=== PATIENT | female | born 1960 | race Caucasian/White ===

== ENCOUNTER → 2024-02-18 | Outpatient (CLI) | payer MEDICARE | LOC: M WHC 07:52 | PROVIDERS: ATTEND Family Medicine | DX: Z13.820 Encounter for screening for osteoporosis (principal); M85.852 Other specified disorders of bone density and structure, left thigh ==

== ENCOUNTER → 2024-03-27 | Outpatient (CLI) | payer MEDICARE | LOC: M RAD 11:37 | PROVIDERS: ATTEND Student in an Organized Health Care Education/Training Program | DX: M25.512 Pain in left shoulder (principal) ==

== ENCOUNTER → 2024-07-07 | Outpatient (CLI) | payer MEDICARE ==
[~2024-07-07] MED LIST: PROHANCE 279.3MG/ML 15ML VIAL ONE
== END ==
LOC: M PLAIMG 11:34
PROVIDERS: ATTEND Internal Medicine
DX: M51.26 Other intervertebral disc displacement, lumbar region (principal); M51.27 Other intervertebral disc displacement, lumbosacral region
CPT/HCPCS: 72158; A9576

== ENCOUNTER → 2024-08-22 | Outpatient (CLI) | payer MEDICARE | LOC: M RAD 10:38 | PROVIDERS: ATTEND Internal Medicine | DX: Z12.2 Encounter for screening for malignant neoplasm of respiratory organs (principal); Z87.891 Personal history of nicotine dependence ==

== ENCOUNTER → 2024-08-26 | Outpatient (CLI) | payer MEDICARE | LOC: M SOG 07:51 | PROVIDERS: ATTEND Physician Assistant | DX: M25.552 Pain in left hip (principal) ==

== ENCOUNTER 2024-09-29 09:35 | Inpatient (IN) | payer MEDICARE ==
[~2024-09-29] VITALS: Ht 170.2 cm; Wt 73.3 kg
[2024-09-29] MEDS: IRBESARTAN 150MG TAB PO SCH (09:00)
[2024-09-29 10:52] LABS: BASO % 0.1 % (0.0-1.0); EOS % 0.2 % (0.0-3.0); HEMOGLOBIN 12.5 g/dl (12.0-15.5); LYMPH # 1.4 10^3/uL (1.5-5.0); LYMPH % 14.7 % (24.0-44.0); MEAN CORPUSCULAR HEMOGLOBIN 29.3 pg (27.0-33.0); MEAN CORPUSCULAR HGB CONC 32.1 g/dl (32.0-36.5); MEAN CORPUSCULAR VOLUME 91.5 fl (80.0-96.0); MONO # 0.7 10^3/uL (0.0-0.8); MONO % 7.2 % (2.0-8.0); NEUTROPHILS # 7.5 10^3/uL (1.5-8.5); NEUTROPHILS % 77.4 % (36.0-66.0); PLATELET COUNT, AUTOMATED 331 10^3/uL (150-450); RED BLOOD COUNT 4.26 10^6/uL (4.00-5.40); WHITE BLOOD COUNT 9.7 10^3/uL (4.0-10.0)
[2024-09-29 11:01] LABS: ERYTHROCYTE SEDIMENTATION RATE 40 mm/hr (0-30)
[2024-09-29] MEDS: MORPHINE 4 MG/ML 1ML VIAL IV PRN (11:12)
[2024-09-29] MEDS: ONDANSETRON 4MG 2ML VIAL IV ONE (11:12)
[2024-09-29 11:24] LABS: BLOOD UREA NITROGEN 15 MG/DL (9-23); C REACTIVE PROTEIN QUANTITATIV 0.81 MG/DL (<1.0); CALCIUM LEVEL 8.9 MG/DL (8.3-10.6); CARBON DIOXIDE LEVEL 30 MMOL/L (20-31); CHLORIDE LEVEL 107 MMOL/L (98-107); CREATININE FOR GFR 0.61 MG/DL (0.55-1.30); GLOMERULAR FILTRATION RATE > 90.0 (>45); GLUCOSE, FASTING 79 MG/DL (74-106); POTASSIUM SERUM 4.7 MMOL/L (3.5-5.1); SODIUM LEVEL 143 MMOL/L (136-145)
[2024-09-29] MEDS ORDERED: PROHANCE 279.3MG/ML 15ML VIAL As Ordered ONE (11:35)
[2024-09-29 16:08] LABS: KETONE, URINE AUTO RFX TRACE mg/dL (NEGATIVE); LEUKOCYTE ESTERASE UR AUTO RFX NEGATIVE (NEGATIVE); MUCUS, URINE RFX SMALL (NEGATIVE); NITRITE, URINE AUTO RFX NEGATIVE (NEGATIVE); RBC, URINE AUTO RFX 2 /HPF (0-3); SQUAM EPITHELIAL CELL UR AURFX 0 /HPF (0-6); WBC, URINE AUTO RFX 1 /HPF (0-3)
[2024-09-29 16:13] LABS: INR 0.99; PARTIAL THROMBOPLASTIN TIME 28.7 SECONDS (24.8-34.2); PROTHROMBIN TIME 13.4 SECONDS (12.5-14.5)
[2024-09-29] MEDS: ACETAMINOPHEN 500 MG TAB PO PRN (16:38)
[2024-09-29] MEDS ORDERED: D 50CAP2 PO (16:41)
[2024-09-29] MEDS ORDERED: ROSU20TA86 PO (16:41)
[2024-09-29] MEDS ORDERED: MELA5TAB58 PO (16:41)
[2024-09-29] MEDS ORDERED: ALEN70TA82 PO (16:41)
[2024-09-29] MEDS ORDERED: TRAZ-252 PO (16:41)
[2024-09-29] MEDS ORDERED: IRBE300T25 PO (16:41)
[2024-09-29] MEDS ORDERED: TRAM50TA2 PO (16:41)
[2024-09-29] MEDS ORDERED: LIDO1PAD TOP (16:42)
[2024-09-29] MEDS ORDERED: HOME MED LIST COMPLETE! XX SCH (16:45)
[2024-09-29 16:59] LABS: THYROID STIMULATING HORMONE 1.131 uIU/ML (0.55-4.78)
[2024-09-29 17:34] VITALS: BP 127/60; TEMP 97.7; O2SAT 93
[2024-09-29] MEDS ORDERED: ONDANSETRON 4MG 2ML VIAL IV PRN (19:45)
[2024-09-29] MEDS ORDERED: fentaNYL 100 MCG/2 ML INJECTION IV PRN (19:45)
[2024-09-29] MEDS ORDERED: oxyCODONE 5MG TAB PO PRN (19:45)
[2024-09-29] MEDS ORDERED: HYDROMORPHONE HCL 0.5 MG/ 0.5 ML SYRINGE IV PRN (19:45)
[2024-09-29] MEDS: LR 1,000 ML IV SCH (19:45)
[2024-09-29 19:56] VITALS: BP 129/58; TEMP 99; O2SAT 91
[2024-09-29] MEDS: traZODone 50 MG TAB PO SCH (21:26)
[2024-09-29 23:31] VITALS: BP 114/56; TEMP 97.2; O2SAT 95
[2024-09-29] MEDS: NS (Normal Saline) 0.9% 1,000 ML IV SCH (23:49)
[2024-09-30 03:50] VITALS: BP 115/56; TEMP 97.4; O2SAT 97
[2024-09-30 04:48] LABS: HEMATOCRIT 34.8 % (36.0-47.0); HEMOGLOBIN 11.4 g/dl (12.0-15.5); MEAN CORPUSCULAR HEMOGLOBIN 30.4 pg (27.0-33.0); MEAN CORPUSCULAR HGB CONC 32.8 g/dl (32.0-36.5); MEAN CORPUSCULAR VOLUME 92.8 fl (80.0-96.0); PLATELET COUNT, AUTOMATED 287 10^3/uL (150-450); RED BLOOD COUNT 3.75 10^6/uL (4.00-5.40); WHITE BLOOD COUNT 7.6 10^3/uL (4.0-10.0)
[2024-09-30 05:17] LABS: BLOOD UREA NITROGEN 17 MG/DL (9-23); CALCIUM LEVEL 8.2 MG/DL (8.3-10.6); CARBON DIOXIDE LEVEL 30 MMOL/L (20-31); CHLORIDE LEVEL 111 MMOL/L (98-107); CREATININE FOR GFR 0.61 MG/DL (0.55-1.30); GLOMERULAR FILTRATION RATE > 90.0 (>45); GLUCOSE, FASTING 89 MG/DL (74-106); POTASSIUM SERUM 4.5 MMOL/L (3.5-5.1); SODIUM LEVEL 146 MMOL/L (136-145)
[2024-09-30] MEDS: NS 0.45% 1,000 ML IV SCH (08:07)
[2024-09-30 08:24] VITALS: BP 132/63; TEMP 98.9; O2SAT 91
[2024-09-30] MEDS ORDERED: HYDROmorphone HCL 2MG/ML 1ML VIAL As Ordered ONE (10:24)
[2024-09-30] MEDS ORDERED: fentaNYL 100 MCG/2 ML INJECTION As Ordered ONE (10:24)
[2024-09-30] MEDS ORDERED: MIDAZOLAM INJ 2MG/2ML VIAL As Ordered ONE (10:24)
[2024-09-30] MEDS ORDERED: ONDANSETRON 4MG 2ML VIAL As Ordered ONE (10:25)
[2024-09-30] MEDS ORDERED: ACETAMINOPHEN 1000MG/100ML IV BAG As Ordered ONE (10:25)
[2024-09-30] MEDS ORDERED: propofoL 200 MG/20 ML VIAL As Ordered ONE (10:25)
[2024-09-30] MEDS ORDERED: ROCURONIUM BROMIDE 50MG/5ML VIAL As Ordered ONE (10:25)
[2024-09-30] MEDS ORDERED: LIDOCAINE 2% 100MG/5ML SDV (FOR ANES.) As Ordered ONE (10:25)
[2024-09-30] MEDS ORDERED: SUGAMMADEX SODIUM 500 MG/5 ML VIAL (BRIDION) As Ordered ONE (10:25)
[2024-09-30] MEDS ORDERED: KETOROLAC 30 MG/ML 1ML VIAL As Ordered ONE (10:29)
[2024-09-30] MEDS ORDERED: GLYCOPYRROLATE INJ 0.2 MG/ML 2 ML VIAL As Ordered ONE (11:32)
[2024-09-30] MEDS: LIDOCAINE W/EPINEPHRINE 1% 20ML VIAL As Ordered ONE (11:48)
[2024-09-30] MEDS ORDERED: ePHEDrine SULFATE 25 MG/5 ML(5MG/ML) SYRINGE As Ordered ONE (11:55)
[2024-09-30] MEDS: ceFAZolin SODIUM 2 GM VIAL As Ordered ONE (12:00)
[2024-09-30] MEDS: VANCOMYCIN 1000MG/20ML VIAL As Ordered ONE (12:26)
[2024-09-30] MEDS ORDERED: METOCLOPRAMIDE INJ 10MG/2ML VIAL As Ordered ONE (12:27)
[2024-09-30] MEDS: BUPivacaine LIPOSOME/PF 266MG 20ML VIAL (13.3MG/ML)(EXPAREL) As Ordered ONE (12:51)
[2024-09-30] MEDS: BACITRACIN OINTMENT 30GM TUBE As Ordered ONE (12:51)
[2024-09-30 14:27] VITALS: BP 143/66; TEMP 97.8; O2SAT 94
[2024-09-30] MEDS: CEFEPIME HCL 2 GM in DEXTROSE 5% (D5W) ADV/MINI-BAG 50 ML IV SCH (15:31)
[2024-09-30] MEDS: VITAMIN D 1,000 INTERNATIONAL UNITS TABLET PO SCH (15:34)
[2024-09-30] MEDS: ROSUVASTATIN 10 MG TAB (CRESTOR) PO SCH (15:34)
[2024-09-30 16:30] VITALS: BP 113/56; TEMP 98.1; O2SAT 96
[2024-09-30] MEDS: metroNIDAZOLE 500 MG in IV 1 EA IV SCH (16:53)
[2024-09-30] MEDS: VANCOMYCIN HCL 1,500 MG, VIAL MATE ADAPTER 1 EACH in NS 500 ML IV ONE (17:17)
[2024-09-30] MEDS: RAMELTEON 8 MG TAB (ROZEREM) PO PRN (20:32)
[2024-09-30] MEDS: DOCUSATE SODIUM 100MG CAPSULE PO SCH (20:32)
[2024-09-30] MEDS: SENNA 8.6 MG TAB (SENOKOT) PO SCH (20:32)
[2024-09-30] MEDS: MORPHINE 4 MG/ML 1ML VIAL IV PRN (20:33)
[2024-09-30 20:38] VITALS: BP 115/54; TEMP 99.8; O2SAT 95
[2024-09-30 23:31] VITALS: BP 101/53; TEMP 98.8; O2SAT 98
[2024-10-01] VITALS (7 sets, daily range): BP systolic 102–148; BP diastolic 51–66; TEMP 97.6–99.4; O2SAT 94–98
[2024-10-01] MEDS: VANCOMYCIN HCL 1,000 MG, VIAL MATE ADAPTER 1 EACH in NS 250 ML IV SCH (01:13)
[2024-10-01 07:41] LABS: BASO % 0.1 % (0.0-1.0); EOS % 0.1 % (0.0-3.0); HEMATOCRIT 33.2 % (36.0-47.0); HEMOGLOBIN 10.6 g/dl (12.0-15.5); LYMPH # 1.1 10^3/uL (1.5-5.0); LYMPH % 11.7 % (24.0-44.0); MEAN CORPUSCULAR HEMOGLOBIN 30.1 pg (27.0-33.0); MEAN CORPUSCULAR HGB CONC 31.9 g/dl (32.0-36.5); MEAN CORPUSCULAR VOLUME 94.3 fl (80.0-96.0); MONO # 0.8 10^3/uL (0.0-0.8); MONO % 7.8 % (2.0-8.0); NEUTROPHILS # 7.8 10^3/uL (1.5-8.5); NEUTROPHILS % 80.1 % (36.0-66.0); PLATELET COUNT, AUTOMATED 248 10^3/uL (150-450); RED BLOOD COUNT 3.52 10^6/uL (4.00-5.40); WHITE BLOOD COUNT 9.8 10^3/uL (4.0-10.0)
[2024-10-01] MEDS ORDERED: NICOTINE POLACRILEX 2 MG GUM PO PRN (07:50)
[2024-10-01 08:15] LABS: BLOOD UREA NITROGEN 18 MG/DL (9-23); C REACTIVE PROTEIN QUANTITATIV 0.71 MG/DL (<1.0); CALCIUM LEVEL 7.9 MG/DL (8.3-10.6); CARBON DIOXIDE LEVEL 28 MMOL/L (20-31); CHLORIDE LEVEL 112 MMOL/L (98-107); CREATININE FOR GFR 0.57 MG/DL (0.55-1.30); GLOMERULAR FILTRATION RATE > 90.0 (>45); GLUCOSE, FASTING 139 MG/DL (74-106); POTASSIUM SERUM 4.6 MMOL/L (3.5-5.1); SODIUM LEVEL 144 MMOL/L (136-145)
[2024-10-01] MEDS: NICOTINE 14 MG/24 HR TRANSDERMAL TD SCH (08:59)
[2024-10-01] MEDS ORDERED: BISACODYL 10MG SUPP PR PRN (12:10)
[2024-10-02 04:20] VITALS: BP 142/74; TEMP 97.9; O2SAT 98
[2024-10-02 06:19] LABS: BASO % 0.3 % (0.0-1.0); EOS % 0.6 % (0.0-3.0); HEMATOCRIT 33.8 % (36.0-47.0); HEMOGLOBIN 10.8 g/dl (12.0-15.5); LYMPH # 1.7 10^3/uL (1.5-5.0); LYMPH % 26.8 % (24.0-44.0); MEAN CORPUSCULAR HEMOGLOBIN 29.7 pg (27.0-33.0); MEAN CORPUSCULAR VOLUME 92.9 fl (80.0-96.0); MONO # 0.6 10^3/uL (0.0-0.8); MONO % 8.7 % (2.0-8.0); NEUTROPHILS % 63.3 % (36.0-66.0); PLATELET COUNT, AUTOMATED 241 10^3/uL (150-450); RED BLOOD COUNT 3.64 10^6/uL (4.00-5.40); WHITE BLOOD COUNT 6.3 10^3/uL (4.0-10.0)
[2024-10-02 06:48] LABS: BLOOD UREA NITROGEN 20 MG/DL (9-23); CALCIUM LEVEL 7.8 MG/DL (8.3-10.6); CARBON DIOXIDE LEVEL 28 MMOL/L (20-31); CHLORIDE LEVEL 112 MMOL/L (98-107); CREATININE FOR GFR 0.62 MG/DL (0.55-1.30); GLOMERULAR FILTRATION RATE > 90.0 (>45); GLUCOSE, FASTING 79 MG/DL (74-106); POTASSIUM SERUM 4.4 MMOL/L (3.5-5.1); SODIUM LEVEL 145 MMOL/L (136-145)
[2024-10-02 08:00] VITALS: BP 130/57; TEMP 97.7; O2SAT 97
[2024-10-02 12:00] VITALS: BP 136/77; TEMP 98.5; O2SAT 96
[2024-10-02] MEDS: ENOXAPARIN 40MG/0.4ML SYRINGE (J1650 PER 10MG) SC SCH (13:00)
[2024-10-02 17:14] VITALS: BP 135/75; TEMP 98.2; O2SAT 98
[2024-10-02 20:22] VITALS: BP 136/74; TEMP 98.1; O2SAT 95
[2024-10-02] MEDS: LOPERAMIDE 2 MG CAPLET PO ONE (22:24)
[2024-10-03] VITALS (7 sets, daily range): BP systolic 119–158; BP diastolic 57–89; TEMP 97.3–98.2; O2SAT 93–100
[2024-10-03] MEDS: LOPERAMIDE 2 MG CAPLET PO ONE (01:10)
[2024-10-03 05:48] LABS: BASO % 0.5 % (0.0-1.0); EOS # 0.1 10^3/uL (0.0-0.5); EOS % 0.9 % (0.0-3.0); HEMATOCRIT 33.6 % (36.0-47.0); HEMOGLOBIN 10.8 g/dl (12.0-15.5); LYMPH # 1.5 10^3/uL (1.5-5.0); LYMPH % 22.4 % (24.0-44.0); MEAN CORPUSCULAR HEMOGLOBIN 29.4 pg (27.0-33.0); MEAN CORPUSCULAR HGB CONC 32.1 g/dl (32.0-36.5); MEAN CORPUSCULAR VOLUME 91.6 fl (80.0-96.0); MONO # 0.5 10^3/uL (0.0-0.8); MONO % 8.3 % (2.0-8.0); NEUTROPHILS # 4.4 10^3/uL (1.5-8.5); NEUTROPHILS % 67.7 % (36.0-66.0); PLATELET COUNT, AUTOMATED 234 10^3/uL (150-450); RED BLOOD COUNT 3.67 10^6/uL (4.00-5.40); WHITE BLOOD COUNT 6.5 10^3/uL (4.0-10.0)
[2024-10-03 06:11] LABS: BLOOD UREA NITROGEN 13 MG/DL (9-23); CARBON DIOXIDE LEVEL 30 MMOL/L (20-31); CHLORIDE LEVEL 109 MMOL/L (98-107); CREATININE FOR GFR 0.58 MG/DL (0.55-1.30); GLOMERULAR FILTRATION RATE > 90.0 (>45); GLUCOSE, FASTING 82 MG/DL (74-106); POTASSIUM SERUM 4.1 MMOL/L (3.5-5.1); SODIUM LEVEL 144 MMOL/L (136-145)
[2024-10-03] MEDS: BACITRACIN OINTMENT 30GM TUBE TOP SCH (08:49)
[2024-10-03 12:29] LABS: CPK CREATINE PHOSPHOKINASE 117 U/L (34-145)
[2024-10-03] MEDS: ERTAPENEM SODIUM 1 GM in NS MINI-BAG PLUS 50 ML IV SCH (13:19)
[2024-10-03] MEDS: DAPTOmycin 600 MG in NS 50 ML IV SCH (14:12)
[2024-10-03] MEDS: LOPERAMIDE 2 MG CAPLET PO PRN (20:16)
[2024-10-04] VITALS (8 sets, daily range): BP systolic 138–170; BP diastolic 61–98; TEMP 97.5–97.9; O2SAT 90–97
[2024-10-04 06:33] LABS: BASO % 0.4 % (0.0-1.0); EOS # 0.1 10^3/uL (0.0-0.5); EOS % 0.9 % (0.0-3.0); HEMATOCRIT 36.9 % (36.0-47.0); HEMOGLOBIN 11.8 g/dl (12.0-15.5); LYMPH # 1.6 10^3/uL (1.5-5.0); LYMPH % 21.7 % (24.0-44.0); MEAN CORPUSCULAR HEMOGLOBIN 29.3 pg (27.0-33.0); MEAN CORPUSCULAR VOLUME 91.6 fl (80.0-96.0); MONO # 0.7 10^3/uL (0.0-0.8); MONO % 9.2 % (2.0-8.0); NEUTROPHILS % 67.5 % (36.0-66.0); PLATELET COUNT, AUTOMATED 260 10^3/uL (150-450); RED BLOOD COUNT 4.03 10^6/uL (4.00-5.40); WHITE BLOOD COUNT 7.4 10^3/uL (4.0-10.0)
[2024-10-04 07:01] LABS: BLOOD UREA NITROGEN 12 MG/DL (9-23); CALCIUM LEVEL 8.3 MG/DL (8.3-10.6); CARBON DIOXIDE LEVEL 31 MMOL/L (20-31); CHLORIDE LEVEL 109 MMOL/L (98-107); CREATININE FOR GFR 0.58 MG/DL (0.55-1.30); GLOMERULAR FILTRATION RATE > 90.0 (>45); GLUCOSE, FASTING 86 MG/DL (74-106); POTASSIUM SERUM 4.2 MMOL/L (3.5-5.1); SODIUM LEVEL 145 MMOL/L (136-145)
[2024-10-04] MEDS ORDERED: SODIUM CHLORIDE 0.9% INJ 10 ML SYR IV PRN (10:45)
[2024-10-04] MEDS: SODIUM CHLORIDE 0.9% INJ 10 ML SYR IV SCH (11:56)
== END 2024-10-04 16:20 | disposition home or self-care (01) | DRG 857 ==
LOC: M ED 09:35 → M ED INP 15:54 → M PCU 17:02 → M MSPAV 10-01 12:15
PROVIDERS: ADMIT Internal Medicine; ATTEND Internal Medicine
PROC: 0Q9 Lower Bones, Drainage (ICD-10-PCS; principal; 2024-09-30 10:30)
DX: T81.49XA Infection following a procedure, other surgical site, initial encounter (principal); L02.212 Cutaneous abscess of back [any part, except buttock and flank]; I10 Essential (primary) hypertension; M54.50 Low back pain, unspecified; F17.210 Nicotine dependence, cigarettes, uncomplicated; Z79.899 Other long term (current) drug therapy; Z88.8 Allergy status to other drugs, medicaments and biological substances; G47.00 Insomnia, unspecified; E55.9 Vitamin D deficiency, unspecified; M81.0 Age-related osteoporosis without current pathological fracture; R19.7 Diarrhea, unspecified; Y84.8 Other medical procedures as the cause of abnormal reaction of the patient, or of later complication, without mention of misadventure at the time of the procedure

== ENCOUNTER 2024-10-05 15:00 | Outpatient (CLI) | payer MEDICARE ==
[~2024-10-05] VITALS: Ht 170.2 cm; Wt 73.3 kg
[~2024-10-05 15:00] MED LIST changes: +ALEN70TA82 PO; +D 50CAP2 PO; +IRBE300T25 PO; +LIDO1PAD TOP; +MELA5TAB58 PO; -PROHANCE 279.3MG/ML 15ML VIAL ONE; +ROSU20TA86 PO; +TRAM50TA2 PO; +TRAZ-252 PO
[2024-10-05 15:30] VITALS: BP 140/70; O2SAT 98
[2024-10-05] MEDS: ERTAPENEM SODIUM 1 GM in NS MINI-BAG PLUS 50 ML IV SCH (16:05)
[2024-10-05] MEDS: DAPTOmycin 600 MG in NS 50 ML IV SCH (16:35)
[2024-10-05 17:14] VITALS: BP 151/69; O2SAT 97
== END 2024-10-05 17:15 | disposition home or self-care (01) ==
LOC: M INFU 15:00
PROVIDERS: ATTEND Internal Medicine
DX: T81.49XA Infection following a procedure, other surgical site, initial encounter (principal); L02.212 Cutaneous abscess of back [any part, except buttock and flank]; Z88.8 Allergy status to other drugs, medicaments and biological substances
CPT/HCPCS: 96365; 96367; J0878; J1335

== ENCOUNTER 2024-10-06 14:09 | Outpatient (CLI) | payer MEDICARE ==
[2024-10-06] MEDS: ERTAPENEM SODIUM 1 GM in NS MINI-BAG PLUS 50 ML IV ONE (14:38)
[2024-10-06] MEDS: DAPTOmycin 600 MG in NS 50 ML IV ONE (15:12)
[2024-10-06 15:45] VITALS: BP 126/60; O2SAT 99
== END 2024-10-06 15:45 | disposition home or self-care (01) ==
LOC: M INFU 14:09
PROVIDERS: ATTEND Internal Medicine
DX: T81.49XA Infection following a procedure, other surgical site, initial encounter (principal); L02.212 Cutaneous abscess of back [any part, except buttock and flank]; Z88.8 Allergy status to other drugs, medicaments and biological substances
CPT/HCPCS: 96365; 96367; J0878; J1335

== ENCOUNTER 2024-10-07 14:22 | Outpatient (CLI) | payer MEDICARE ==
[~2024-10-07] VITALS: Ht 170.2 cm; Wt 71.8 kg
[2024-10-07 14:25] VITALS: BP 116/62; O2SAT 97
[2024-10-07] MEDS: ERTAPENEM SODIUM 1 GM in NS MINI-BAG PLUS 50 ML IV ONE (14:35)
[2024-10-07] MEDS: DAPTOmycin 600 MG in NS 50 ML IV ONE (15:03)
[2024-10-07 15:37] VITALS: BP 116/55; O2SAT 96
== END 2024-10-07 15:45 | disposition home or self-care (01) ==
LOC: M INFU 14:22
PROVIDERS: ATTEND Internal Medicine
DX: T81.49XA Infection following a procedure, other surgical site, initial encounter (principal); L02.212 Cutaneous abscess of back [any part, except buttock and flank]; Z88.8 Allergy status to other drugs, medicaments and biological substances
CPT/HCPCS: 96365; 96376; J0878; J1335

== ENCOUNTER 2024-10-08 13:33 | Outpatient (CLI) | payer MEDICARE ==
[~2024-10-08] VITALS: Ht 170.2 cm; Wt 71.8 kg
[2024-10-08 14:59] VITALS: BP 135/59; O2SAT 97
[2024-10-08] MEDS: ERTAPENEM SODIUM 1 GM in NS MINI-BAG PLUS 50 ML IV ONE (15:01)
[2024-10-08] MEDS: DAPTOmycin 600 MG in NS 50 ML IV ONE (15:51)
[2024-10-08 16:26] VITALS: BP 107/64; O2SAT 100
== END 2024-10-08 16:30 | disposition home or self-care (01) ==
LOC: M OPCLI5PR 13:33 → M MS5PR 13:37 → M OPCLI5PR 16:30
PROVIDERS: ATTEND Internal Medicine
DX: T81.49XA Infection following a procedure, other surgical site, initial encounter (principal); L02.212 Cutaneous abscess of back [any part, except buttock and flank]; Z88.8 Allergy status to other drugs, medicaments and biological substances

== ENCOUNTER 2024-10-09 10:22 | Outpatient (CLI) | payer MEDICARE ==
[~2024-10-09] VITALS: Ht 170.2 cm; Wt 73.3 kg
[2024-10-09] MEDS: ERTAPENEM SODIUM 1 GM in NS MINI-BAG PLUS 50 ML IV ONE (11:05)
[2024-10-09 11:16] VITALS: BP 139/63; O2SAT 98
[2024-10-09] MEDS: DAPTOmycin 600 MG in NS 50 ML IV ONE (11:41)
== END 2024-10-09 12:20 | disposition home or self-care (01) ==
LOC: M INFU 10:22
PROVIDERS: ATTEND Internal Medicine
DX: T81.49XA Infection following a procedure, other surgical site, initial encounter (principal); L02.212 Cutaneous abscess of back [any part, except buttock and flank]; Z88.8 Allergy status to other drugs, medicaments and biological substances
CPT/HCPCS: 96365; 96367; J0878; J1335

== ENCOUNTER 2024-10-10 13:41 | Outpatient (CLI) | payer MEDICARE ==
[~2024-10-10] VITALS: Ht 167.6 cm; Wt 72.3 kg
[2024-10-10 13:49] VITALS: BP 148/65; O2SAT 97
[2024-10-10] MEDS: ERTAPENEM SODIUM 1 GM in NS MINI-BAG PLUS 50 ML IV ONE (13:53)
[2024-10-10 14:21] LABS: HEMATOCRIT 37.8 % (36.0-47.0); HEMOGLOBIN 12.1 g/dl (12.0-15.5); MEAN CORPUSCULAR HEMOGLOBIN 30.4 pg (27.0-33.0); PLATELET COUNT, AUTOMATED 217 10^3/uL (150-450); RED BLOOD COUNT 3.98 10^6/uL (4.00-5.40); WHITE BLOOD COUNT 7.9 10^3/uL (4.0-10.0)
[2024-10-10] MEDS: DAPTOmycin 600 MG in NS 50 ML IV ONE (14:30)
[2024-10-10 14:45] LABS: BLOOD UREA NITROGEN 12 MG/DL (9-23); C REACTIVE PROTEIN QUANTITATIV < 0.50 MG/DL (<1.0); CALCIUM LEVEL 9.2 MG/DL (8.3-10.6); CARBON DIOXIDE LEVEL 30 MMOL/L (20-31); CHLORIDE LEVEL 107 MMOL/L (98-107); CPK CREATINE PHOSPHOKINASE 259 U/L (34-145); CREATININE FOR GFR 0.53 MG/DL (0.55-1.30); GLOMERULAR FILTRATION RATE > 90.0 (>45); GLUCOSE, FASTING 88 MG/DL (74-106); POTASSIUM SERUM 4.1 MMOL/L (3.5-5.1); SODIUM LEVEL 141 MMOL/L (136-145)
[2024-10-10 15:15] VITALS: BP 120/57; O2SAT 97
== END 2024-10-10 15:15 | disposition home or self-care (01) ==
LOC: M INFU 13:41
PROVIDERS: ATTEND Internal Medicine
DX: T81.49XA Infection following a procedure, other surgical site, initial encounter (principal); L02.212 Cutaneous abscess of back [any part, except buttock and flank]; Z88.8 Allergy status to other drugs, medicaments and biological substances
CPT/HCPCS: 36592; 80048; 82550; 85027; 86140; 96365; 96367; J0878; J1335

== ENCOUNTER 2024-10-11 14:00 | Outpatient (CLI) | payer MEDICARE ==
[2024-10-11] MEDS: ERTAPENEM SODIUM 1 GM in NS MINI-BAG PLUS 50 ML IV ONE (14:02)
[2024-10-11] MEDS: DAPTOmycin 600 MG in NS 50 ML IV ONE (14:30)
[2024-10-11 15:01] VITALS: BP 124/68; O2SAT 100
== END 2024-10-11 15:00 ==
LOC: M INFU 14:00
PROVIDERS: ATTEND Internal Medicine
DX: T81.49XA Infection following a procedure, other surgical site, initial encounter (principal); L02.212 Cutaneous abscess of back [any part, except buttock and flank]; Z88.8 Allergy status to other drugs, medicaments and biological substances
CPT/HCPCS: 96365; 96376; J0878; J1335

== ENCOUNTER 2024-10-12 14:00 | Outpatient (CLI) | payer MEDICARE ==
[~2024-10-12] VITALS: Ht 170.2 cm; Wt 73.3 kg
[2024-10-12 14:50] VITALS: BP 145/53; O2SAT 97
[2024-10-12] MEDS: ERTAPENEM SODIUM 1 GM in NS MINI-BAG PLUS 50 ML IV ONE (14:56)
[2024-10-12] MEDS: DAPTOmycin 600 MG in NS 50 ML IV ONE (15:27)
[2024-10-12 16:00] VITALS: BP 117/70; O2SAT 99
== END 2024-10-12 16:00 | disposition home or self-care (01) ==
LOC: M INFU 14:00
PROVIDERS: ATTEND Internal Medicine
DX: T81.49XA Infection following a procedure, other surgical site, initial encounter (principal); L02.212 Cutaneous abscess of back [any part, except buttock and flank]; Z88.8 Allergy status to other drugs, medicaments and biological substances
CPT/HCPCS: 96365; 96367; J0878; J1335

== ENCOUNTER → 2025-02-23 | Outpatient (REF) | payer MEDICARE ==
[~2025-02-23] MED LIST changes: +ONDA-282 PO
== END ==
LOC: M LAB REF 12:02
PROVIDERS: ATTEND Student in an Organized Health Care Education/Training Program
DX: J06.9 Acute upper respiratory infection, unspecified (principal)

== ENCOUNTER → 2025-05-04 | Outpatient (CLI) | payer MEDICARE ==
[~2025-05-04] MED LIST changes: +PROHANCE 279.3MG/ML 15ML VIAL ONE
== END ==
LOC: M PLAIMG 09:27
PROVIDERS: ATTEND Neurological Surgery
DX: M54.50 Low back pain, unspecified (principal); M47.816 Spondylosis without myelopathy or radiculopathy, lumbar region
CPT/HCPCS: 72158; A9579